=== PATIENT | female | born 1990 | race Caucasian/White ===

== ENCOUNTER 2016-04-17 20:42 | Outpatient (CLI) | payer OTHER | END 2016-04-17 21:50 | disposition home or self-care (01) | LOC: OBC SRH 20:42 → OB SRH 20:44 → OBC SRH 21:50 | PROC: 4A0HXCZ Measurement of Products of Conception, Cardiac Rate, External Approach (ICD-10-PCS; principal; 2016-04-17) | DX: O47.1 False labor at or after 37 completed weeks of gestation (principal); Z3A.38 38 weeks gestation of pregnancy ==

== ENCOUNTER 2016-05-02 10:44 | Outpatient (CLI) | payer OTHER | END 2016-05-02 11:30 | disposition home or self-care (01) | LOC: OBC SRH 10:44 → OB SRH 10:48 → OBC SRH 11:30 | PROC: 4A0HXCZ Measurement of Products of Conception, Cardiac Rate, External Approach (ICD-10-PCS; principal; 2016-05-02) | DX: O48.0 Post-term pregnancy (principal); Z3A.40 40 weeks gestation of pregnancy ==

== ENCOUNTER 2016-05-07 08:25 | Inpatient (IN) | payer OTHER ==
[2016-05-07] VITALS (7 sets, daily range): BP systolic 126–150; BP diastolic 60–85
[2016-05-08 00:30] VITALS: BP 119/69
[2016-05-08] MEDS ORDERED: PRENATAL1 TAB PO (00:46)
[2016-05-08 03:35] VITALS: BP 113/68
[2016-05-08 08:54] VITALS: BP 122/69
--- NOTE | 2016-05-08 11:38 | Progress Note ---
Subjective General Patient doing well post with 2 degree laceration. Overall feeling well no concerns. Physical Exam Vital Signs / I&Os Vital Signs Date Time Temp Pulse Resp B/P Pulse O2 O2 Flow FiO2 Ox Delivery Rate 05/08 0854 98.1 80 14 122/69 05/08 0335 98.2 67 18 113/68 05/08 0030 99.0 89 20 119/69 99 05/08 0015 Room Air 05/07 2330 98.4 96 20 127/76 96 05/079 100.2 95 18 132/76 05/079 91 18 135/71 05/07 2108 82 18 130/63 05/07 2053 99.7 90 18 126/61 05/07 2038 92 18 126/60 05/07 2027 95 18 150/85 05/07 2027 95 18 150/85 I&O 05/08 0000 05/07 1600 05/07 0800 Intake Total Output Total Balance General Appearance Alert, Cooperative, No acute distress Lungs Clear to auscultation, Normal air movement Cardiovascular Regular rate and rhythm, No murmurs, gallops, rubs Abdomen Soft, No tenderness Extremities moves all ext well Neurological Normal exam Assessment and Plan Problem List 1. Follow-up, , routine Plan Doing well no concerns. Post day 1. Desires d/c today
--- NOTE | 2016-05-08 11:44 | Provider's Discharge Care Plan ---
Problem, Goal, Plan Problem List 1. Follow-up, , routine Instructions: Follow up as directed, Take meds as directed, OK crow pack for pain and f/u with Dr. Rouse 6weeks pp sooner as needed
[2016-05-08 16:30] VITALS: BP 108/80
== END 2016-05-08 21:45 | disposition home or self-care (01) | DRG 775 ==
LOC: OBC SRH 08:25 → OB SRH 08:27 → OBC SRH 09:06 → OB SRH 09:06
PROVIDERS: ADMIT Family Medicine
PROC: 10E0XZZ Delivery of Products of Conception, External Approach (ICD-10-PCS; principal; 2016-05-07)
PROC: 0KQM0ZZ Repair Perineum Muscle, Open Approach (ICD-10-PCS; 2016-05-07)
DX: O70.1 Second degree perineal laceration during delivery (principal); Z37.0 Single live birth; O69.81X0 Labor and delivery complicated by cord around neck, without compression, not applicable or unspecified; O48.0 Post-term pregnancy; Z3A.41 41 weeks gestation of pregnancy
CPT/HCPCS: 40011; 82221; 83411; 83475; 84038; 84043; 95059; 98480